=== PATIENT | male | born 1975 | race Two or more races ===

== ENCOUNTER 2023-02-12 06:47 | Emergency (ER) | payer SELFPAY ==
[~2023-02-12] VITALS: Ht 167.6 cm; Wt 70.0 kg
[2023-02-12 07:22] LABS: Basophils # (auto) 0 10 ^3/uL (0-0.2); Basophils % (auto) 0.4 % (0.0-2.0); Eosinophils # (auto) 0.1 10 ^3/uL (0-0.8); Eosinophils % (auto) 0.9 % (0.0-7.0); Hematocrit 45.8 % (41.0-53.0); Hemoglobin 15.9 g/dL (13.5-17.5); Lymphocytes # (auto) 2.3 10 ^3/uL (0.4-5.4); Lymphocytes % (auto) 31.6 % (10.0-50.0); Mean Corpuscular Hemoglobin 31.8 pg (28.0-32.0); Mean Corpuscular Hgb Conc. 34.7 g/dL (32.0-36.0); Mean Corpuscular Volume 91.6 fL (80.0-100.0); Monocytes # (auto) 0.5 10 ^3/uL (0-1.3); Neutrophils # (auto) 4.4 10 ^3/uL (1.6-8.6); Neutrophils % (auto) 60.1 % (37.0-80.0); Nucleated Red Blood Cells % 0.1 %; Red Blood Cells 5.01 10^6/uL (4.5-5.90); Red Cell Distribution Width 13.2 % (11.8-14.3); White Blood Cell 7.3 10^3/uL (4.4-10.8)
[2023-02-12 07:37] LABS: INR 0.97 (0.9-1.15); Partial Thromboplastin Time 30.2 sec (24.6-33.4)
[2023-02-12] MEDS ORDERED: IOHEXOL 350 MG/ML 100ML IJ ONE (07:55)
[2023-02-12 08:01] LABS: Calcium 8.8 mg/dL (8.5-10.1); Potassium 3.9 mmol/L (3.5-5.1)
[2023-02-12 08:04] LABS: BUN/Creatinine Ratio 12.6 (10.0-20.0); Bilirubin, Total 0.6 mg/dL (0.2-1.0); Total Protein 7.6 g/dL (6.4-8.2)
[2023-02-12 08:31] LABS: Urine Bacteria NONE SEEN /hpf (None Seen); Urine Blood 1+ /uL (Negative); Urine Mucus FEW (None Seen); Urine Specific Gravity 1.026 (1.001-1.035); Urine WBC 1 /hpf (0 - 3)
[2023-02-12] MEDS ORDERED: MECLIZINE HCL 25 MG TAB PO ONE (10:45)
[2023-02-12 12:24] VITALS: BP 144/98
== END 2023-02-12 12:27 | disposition home or self-care (01) ==
LOC: ER 06:47 → EDBD 06:47 → ER 12:26
DX: F41.9 Anxiety disorder, unspecified (principal); K57.10 Diverticulosis of small intestine without perforation or abscess without bleeding; K76.9 Liver disease, unspecified; K76.0 Fatty (change of) liver, not elsewhere classified; Z98.890 Other specified postprocedural states; F17.210 Nicotine dependence, cigarettes, uncomplicated
CPT/HCPCS: 36415; 70450; 71046; 71260; 74177; 80053; 81001; 83880; 84484; 85025; 85610; 85730; 93005; 99285; J8597; Q9967

== ENCOUNTER 2023-03-12 21:16 | Emergency (ER) | payer SELFPAY ==
[~2023-03-12] VITALS: Ht 165.1 cm; Wt 71.5 kg
[2023-03-12 23:03] VITALS: BP 148/91
[2023-03-12] MEDS ORDERED: TRIA0.02 TOP (23:17)
== END 2023-03-12 23:27 | disposition home or self-care (01) ==
LOC: ER 21:16
DX: H66.92 Otitis media, unspecified, left ear (principal); L30.9 Dermatitis, unspecified; E78.5 Hyperlipidemia, unspecified; F17.210 Nicotine dependence, cigarettes, uncomplicated

== ENCOUNTER 2023-05-28 15:35 | Emergency (ER) | payer OTHER ==
[~2023-05-28] VITALS: Ht 167.6 cm; Wt 72.0 kg
[~2023-05-28 15:35] MED LIST: TRIA0.02 TOP
[2023-05-28 16:30] VITALS: BP 142/90; PULSE 98; RESP 18; TEMP 97.6; O2SAT 98
[2023-05-28] MEDS ORDERED: IBUP-1456 PO (16:41)
[2023-05-28] MEDS ORDERED: AUG875T PO (16:41)
[2023-05-28] MEDS ORDERED: HYDR50CA PO (16:41)
== END 2023-05-28 16:49 | disposition home or self-care (01) ==
LOC: ER 15:35
DX: J01.90 Acute sinusitis, unspecified (principal); G44.209 Tension-type headache, unspecified, not intractable; F41.9 Anxiety disorder, unspecified; E78.5 Hyperlipidemia, unspecified; F17.210 Nicotine dependence, cigarettes, uncomplicated; Z79.899 Other long term (current) drug therapy
CPT/HCPCS: 70450